=== PATIENT | female | born 1995 | race Hispanic/Latino ===

== ENCOUNTER 2025-06-07 08:47 | Emergency (ER) | payer SELFPAY ==
[2025-06-07] MEDS ORDERED: Lidocaine 1% PF 5 ML VIAL ONE (09:01)
== END 2025-06-07 09:39 | disposition home or self-care (01) ==
LOC: ERS 08:47
DX: L02.412 Cutaneous abscess of left axilla (principal); Z55.6 Problems related to health literacy
CPT/HCPCS: 10060

== ENCOUNTER 2025-06-16 09:43 | Emergency (ER) | payer SELFPAY ==
[2025-06-16] MEDS ORDERED: Ibuprofen 800 MG TAB ONE (10:15)
== END 2025-06-16 10:18 | disposition home or self-care (01) ==
LOC: ERS 09:43
DX: K04.7 Periapical abscess without sinus (principal); K08.89 Other specified disorders of teeth and supporting structures
CPT/HCPCS: 99282